=== PATIENT | male | born 1960 | race Caucasian/White ===

== ENCOUNTER 2018-12-11 10:07 | Emergency (ER) | payer SELFPAY ==
[~2018-12-11] VITALS: Ht 177.8 cm; Wt 81.6 kg
[2018-12-11 10:11] VITALS: Ht 177.8 cm; Wt 81.6 kg
[2018-12-11 10:47] LABS: BASOPHIL % 0.5 % (0-2); PLATELET COUNT 223 x10^3mcL (130-400); RED CELL DISTRIBUTION WIDTH 12.9 % (11.5-14.5)
[2018-12-11 11:02] LABS: CALCIUM 8.9 mg/dL (8.5-10.1); CARBON DIOXIDE 19.5 mmol/L (21-32); CREATININE SERUM 3.7 mg/dL (0.7-1.3); POTASSIUM SERUM 4.5 mmol/L (3.5-5.1)
[2018-12-11 11:09] LABS: BILIRUBIN TOTAL 0.26 mg/dL (0.20-1.00); CHOLESTEROL/HDL RATIO 3.9; TOTAL PROTEIN, SERUM 6.9 g/dL (6.4-8.2)
[2018-12-11 11:12] LABS: ALBUMIN 3.2 g/dL (3.4-5.0)
[2018-12-11 11:37] LABS: FREE T4 1.2 ng/dL (0.76-1.46); FREE THYROXINE INDEX 3.1 ug/dL (1.4-4.5); T4(THYROXINE) 8.1 ug/dL (4.7-13.3)
[2018-12-11 12:33] LABS: T3 TOTAL 1.09 ng/mL
[2018-12-11 13:33] VITALS: BP 127/70
== END 2018-12-11 13:33 | disposition home or self-care (01) ==
LOC: ED 10:07
PROVIDERS: Specialist
DX: E11.22 Type 2 diabetes mellitus with diabetic chronic kidney disease (principal); I10 Essential (primary) hypertension; E86.0 Dehydration; R55 Syncope and collapse; F17.210 Nicotine dependence, cigarettes, uncomplicated; Z71.6 Tobacco abuse counseling
CPT/HCPCS: 83880; 84439; 99406; J7030; Q0092